=== PATIENT | female | born 1985 | race African-American/Black ===

== ENCOUNTER 2021-01-20 16:30 | Emergency (ER) | payer OTHER ==
[2021-01-20] MEDS ORDERED: Ketorolac Tromethamine 30 MG/ML VIAL ONE (17:10)
== END 2021-01-20 17:42 | disposition home or self-care (01) ==
LOC: CSHERS 16:30
DX: S16.1XXA Strain of muscle, fascia and tendon at neck level, initial encounter (principal); F17.210 Nicotine dependence, cigarettes, uncomplicated; S29.012A Strain of muscle and tendon of back wall of thorax, initial encounter; V49.9XXA Car occupant (driver) (passenger) injured in unspecified traffic accident, initial encounter
CPT/HCPCS: 96372; 99283; J1885